=== PATIENT | female | born 1970 | race African-American/Black ===

== ENCOUNTER 2016-09-13 13:21 | Emergency (ER) | payer MEDICAID ==
[~2016-09-13] VITALS: Ht 165.1 cm; Wt 73.0 kg
[2016-09-13 13:25] VITALS: BP 113/71
== END 2016-09-13 16:05 | disposition home or self-care (01) ==
LOC: ER 13:23
DX: M54.31 Sciatica, right side (principal); F12.10 Cannabis abuse, uncomplicated; F17.200 Nicotine dependence, unspecified, uncomplicated; Z90.710 Acquired absence of both cervix and uterus
CPT/HCPCS: 99282